=== PATIENT | female | born 1965 | race Caucasian/White ===

== ENCOUNTER 2016-05-04 09:15 | Emergency (ER) | payer OTHER ==
[2016-05-04 09:30] VITALS: BP 124/71; PULSE 64; RESP 16; TEMP 98.6; O2SAT 100
--- NOTE | 2016-05-04 09:54 | UCPHY ---
H & P Patient Type: New Chief Complaint Nursing Narrative: LACERATION TO LEFT THUMB WITH A HOT KNIFE USED TO CUT HONEY HPI/ROS: CHIEF COMPLAINT: Left thumb laceration HISTORY OF PRESENT ILLNESS: This patient is a 51 year old woman presenting with acute left thumb laceration, sustained one hour ago. The patient was using a hot knife to cut honey and cut her left thumb, over the PIP joint. Tetanus is up to date. The bleeding is controlled. She denies weakness or paresthesia. She is able to flex and extend her thumb. REVIEW OF SYSTEMS: A ten point review of systems was performed and is negative with the exception of the items mentioned in the HPI. Source: Patient Exam Limitations: No limitations - Personal History LMP (Females 10-55): Post Menopausal Current Tetanus Diphtheria and Acellular Pertussis (TDAP): Yes Tetanus Vaccine Date: < 10 YEAR - Medical/Surgical History Hx Asthma: No Hx Chronic Respiratory Disease: No Hx Diabetes: No Hx Cardiac Disease: No Hx Renal Disease: No Hx Cirrhosis: No Hx Alcoholism: No Hx HIV/AIDS: No Hx Splenectomy or Spleen Trauma: No Other PMH: lower inestine adhesion surg. ankle surg - Family History Significant Family History: No pertinent family hx - Social History Smoking Status: Never smoked Alcohol Use: None Drug Use: None Additional Social History: She works as a bee-keeper - Physical Exam Exam: General Appearance: Alert. Vital signs reviewed. Focused exam was performed. Skin: 1.25cm laceration over the left thumb PIP joint. Extremities: Full extension and flexion of the left thumb. No tendon involvement clinically. Sensation intact to light touch. Neurological: Alert and oriented. Normal left thumb sensation and motor function. Pulses: 2+ radial pulses bilaterally. Psychiatric: Normal affect. Constitutional: Initial Vital Signs Temperature (C) 37 C 05/04/16 09:25 Heart Rate 64 05/04/16 09:25 Respiratory Rate 16 05/04/16 09:25 Blood Pressure 124/71 H 05/04/16 09:25 O2 Sat (%) 100 05/04/16 09:25 O2 Delivery Mode Room Air Allergies/Adverse Reactions: clindamycin Allergy (Verified 05/04/16 09:30) Home Medications: Medication Instructions Recorded Vitamin D3 (OTC) 06/04/15 Medical Decision Making Procedures: Procedure: Laceration repair. The 1.25cm laceration on the left thumb was anesthetized using lidocaine. The wound was irrigated, draped and explored to its base with a gloved finger. There were no deep structures involved. There was no tendon involvement. No foreign body palpable. The wound was repaired with 7 5-0 Nylon sutures. The wound repair was simple. ED Course/Re-evaluation: Left thumb laceration sustained while cutting honey with a hot knife. There is no tendon involvement on exam. Radial pulses are 2+ bilaterally. No neurovascular deficits, no bone involvement. The laceration will be anesthetized , cleaned, and repaired. Tetanus is up to date. Departure - Departure Disposition: Home, Routine, Self-Care Clinical Impression: Thumb laceration Qualifiers: Encounter type: initial encounter Laterality: left Qualified Code(s): S61.012A - Laceration without foreign body of left thumb without damage to nail, initial encounter Condition: Good Instructions: Care For Your Stitches (ED), Stitches Removal (ED), Finger Laceration (ED) Additional Instructions: Sutures out in 10 days. Return to the Emergency Department for fever, redness, discharge from wound, increasing pain or other worsening of condition. Referrals: JYOTSNA EDUARDO, CLINICAL ALLERGIST [Primary Care Provider] - As per Instructions - PQRS PQRS Measurement: Does not apply Report Scribed for: Taya Valdovinos Report Scribed by: Laura Ackerman Date of Report: 05/04/16 Time of Report: 09:59 Physician Review and Approval Statement: 05/06/16 05:53 Portions of this chart were entered by a medical office assistant instructor. I personally performed the history, PE, MDM, and procedure. I have reviewed and agree with the documentation.
== END 2016-05-04 11:16 | disposition home or self-care (01) ==
LOC: CED 09:15
PROC: 0HQGXZZ Repair Left Hand Skin, External Approach (ICD-10-PCS; principal; 2016-05-04)
DX: S62.012A Displaced fracture of distal pole of navicular [scaphoid] bone of left wrist, initial encounter for closed fracture (principal); W26.0XXA Contact with knife, initial encounter; Y93.G1 Activity, food preparation and clean up
CPT/HCPCS: 12001-PO; 99203-PO; G0463-PO

== ENCOUNTER → 2017-04-30 | Outpatient (CLI) | payer OTHER | LOC: FIMAGING 08:09 | PROVIDERS: ATTEND Nurse Practitioner Family | DX: Z12.31 Encounter for screening mammogram for malignant neoplasm of breast (principal) ==

== ENCOUNTER → 2017-07-21 | Outpatient (CLI) | payer BC | LOC: CIMAGING 17:51 | DX: M79.605 Pain in left leg (principal) | CPT/HCPCS: 93971-PO ==

== ENCOUNTER → 2018-05-19 | Outpatient (CLI) | payer BC | LOC: FIMAGING 10:32 | PROVIDERS: ATTEND Nurse Practitioner Family | DX: Z12.31 Encounter for screening mammogram for malignant neoplasm of breast (principal) ==